=== PATIENT | male | born 1960 | race Caucasian/White ===

== ENCOUNTER 2017-11-13 11:21 | Inpatient (IN) | payer OTHER ==
[~2017-11-13] VITALS: Ht 180.3 cm; Wt 81.6 kg
--- NOTE | 2017-11-13 11:52 | ED GI/GU/ABDOMINAL COMPLAINT ---
History of Present Illness General Chief Complaint: Abdominal Pain/Flank Pain Stated Complaint: ABD PAIN Source: patient, family Exam Limitations: no limitations Vital Signs & Intake/Output Vital Signs & Intake/Output Vital Signs Date Time Temp Pulse Resp B/P B/P Pulse O2 O2 Flow FiO2 Mean Ox Delivery Rate 11/13 1430 99.8 11/13 1430 99.8 88 20 131/80 96 Room Air 11/13 1355 96 20 133/87 94 11/13 1346 101.0 11/13 1320 101.1 98 20 145/100 98 Room Air 11/13 1126 99.6 113 18 130/93 96 Room Air Allergies Coded Allergies: NO KNOWN ALLERGIES (11/20/13) Reconcile Medications No Known Home Medications Triage Note: PATIENT TO ER FROM [facility] C/C LOWER ABD PAIN SHARP WITH ANOREXIA X 1 WEEK, CONSTANT. MILD NAUSEA. DENIES URINARY S/S Triage Nurses Notes Reviewed? yes Onset: Gradual Duration: week(s): Timing: recent history Quality/Severity: moderate, sharpness Severity Numbers: 8 Location: left lower quadrant, right lower quadrant HPI: 57yo male presents to ED complaining of bilateral lower abdominal pain x 1 week. Pain described as 8/10, stabbing pain, fluctuating in intensity. Pain has been constant, patient tried Advil which helped slightly. PAtient had constipation x 5 days during which time he passed no flatus then diarrhea for the past few days. Patient also reports cough productive of white phlem. Patient has been drinking fluids daily. Current daily cigarette and marijuana smoker and drinks 4 -6 beers per day however no alcohol with current abdominal pain. Patient reports tacticle fevers and chills about 1 week ago. 1 episode of nonbilious, nonbloody vomiting 1 week ago. Hx of prior inguinal hernia. No hx of similar abdominal pain. Past History Travel History Traveled to [place] past 21 day No Medical History Any Pertinent Medical History? see below for history Gastrointestinal: inguinal hernia Surgical History Surgical History: hernia repair-inguinal Psychosocial History What is your primary language Palestinian Tobacco Use: Current Daily Use Daily Tobacco Use Amount/Type: => 5 Cigarettes daily Family History Hx Contributory? No Review of Systems Review of Systems Constitutional: Reports: see HPI. EENTM: Reports: no symptoms. Respiratory: Reports: no symptoms. Cardiovascular: Reports: no symptoms. GI: Reports: see HPI. Genitourinary: Reports: no symptoms. Musculoskeletal: Reports: no symptoms. Skin: Reports: no symptoms. Neurological/Psychological: Reports: no symptoms. Hematologic/Endocrine: Reports: no symptoms. Immunologic/Allergic: Reports: no symptoms. All Other Systems: Reviewed and Negative Physical Exam Physical Exam General Appearance: well developed/nourished, no apparent distress, alert, awake Head: atraumatic, normal appearance Eyes: Bilateral: normal appearance. Ears, Nose, Throat, Mouth: hearing grossly normal Neck: normal inspection, supple, full range of motion Respiratory: normal breath sounds, no respiratory distress, lungs clear Cardiovascular: regular rate/rhythm Gastrointestinal: mild distention, tenderness through out all quadrants with gaurding Back: normal inspection, normal range of motion Extremities: normal range of motion Neurologic/Psych: awake, alert, oriented x 3 Skin: intact, normal color, warm/dry Core Measures ACS in differential dx? No Sepsis Present: No Sepsis Focused Exam Completed? No Progress Differential Diagnosis: appendicitis, bowel obstruction, colon cancer, cholecystitis, diverticulitis, gastritis, hepatitis, hernia, hemorrhoids, inflamm bowel dis, pancreatitis, peptic ulcer, PUD/GERD, perforated viscous, SBO , ureterolithiasis Plan of Care: Orders Procedure Date/time Status CT PERCUTANEOUS ABSCESS DRAIN 11/13 1513 Active Add-on Test (ER Only) 11/13 1456 Active CULTURE,BODY FLUID 11/13 1442 Active BLOOD CULTURE 11/13 1358 Active Add-on Test (ER Only) 11/13 1221 Active TROPONIN LEVEL 11/13 1139 Complete PROTHROMBIN TIME 11/13 1139 Complete LIPASE 11/13 1139 Complete ETHANOL 11/13 1139 Complete C-REACTIVE PROTEIN 11/13 1139 Complete AMYLASE 11/13 1139 Complete EKG 11/13 1129 Active LACTIC ACID 11/13 1127 Complete HIGH SENSITIVITY CRP 11/13 1127 Complete COMPREHENSIVE METABOLIC PANEL 11/13 1127 Complete CBC WITHOUT DIFFERENTIAL 11/13 1127 Complete Current Medications Sig/Julianna Start time Last Medication Dose Stop Time Status Admin Ampicillin Sodium/ 3,000 MG ONCE ONE 11/13 1500 AC Sulbactam Sodium 11/13 1529 (Unasyn) Sodium Chloride 100 ML (Normal Saline 0.9%) Laboratory Tests 11/13/17 1456: PT Cancelled, INR Cancelled 11/13/17 1427: Lactic Acid Cancelled 11/13/17 1139: Anion Gap 18 H, Estimated GFR > 60, BUN/Creatinine Ratio 18.9, Glucose 123 H, Lactic Acid 1.8, Calcium 9.0, Total Bilirubin 2.7 H, AST 30, ALT 53, Alkaline Phosphatase 166 H, Troponin I < 0.01, C-Reactive Prot, Quant > 9.0 H, C-React Prot High Sens > 15.0 H, Total Protein 6.5, Albumin 3.6, Globulin 2.9, Albumin/ Globulin Ratio 1.2, Amylase 34, Lipase 34, PT 13.2 H, INR 1.26 H, CBC w Diff MAN DIFF ORDERED, RBC 4.75, MCV 97.0 H, MCH 32.5 H, RDW 13.6, MPV 7.1 L, Gran % 86.2 H, Lymphocytes % 5.4 L, Monocytes % 7.6, Eosinophils % 0.5, Basophils % 0.3, Absolute Granulocytes 17.0 H, Segmented Neutrophils 63, Band Neutrophils 18 H, Absolute Lymphocytes 1.1 L, Lymphocytes 11 L, Monocytes 7, Absolute Monocytes 1.5 H, Eosinophils 1, Absolute Eosinophils 0.1, Absolute Basophils 0.1, Platelet Estimate INCREASED, Normocytic RBCs VERIFIED, Normochromic RBCs VERIFIED, PUBS MCHC 33.5, Serum Alcohol < 10.0 Microbiology 11/13 1442 BODY FLUID: Body Fluid Culture - ORD 11/13 1442 BODY FLUID: Gram Stain - ORD 11/13 1430 BLOOD: Blood Culture - RECD 11/13 1430 BLOOD: Blood Culture - RECD CT scan shows diverticulitis with perisigmoid abscess. Discussed these findings with Dr. Snow. Surgical PA present to see and evaluate patient. Patient started on IV Unasyn. Patient will have CT-guided IR procedure for abscess and be admitted under surgical service. Patient medicated with IV acetaminophen and IV fluids regarding his fever. Diagnostic Imaging: Viewed by Me: CT Scan. Discussed w/RAD: CT Scan. Radiology Impression: PATIENT: BHASKAR DONIS PRESENT AGE: 57 PATIENT ACCOUNT NO: [id number] : 62 LOCATION: [facility] ORDERING PHYSICIAN: Denise TRINIDAD SERVICE DATE: 11/13/174 EXAM TYPE: CAT - CT ABD & PELVIS W IV CONTRAST EXAMINATION: CT ABDOMEN AND PELVIS WITH CONTRAST CLINICAL INFORMATION: Generalized abdominal pain and leukocytosis. COMPARISON: None TECHNIQUE: Multidetector volumetric imaging was performed of the abdomen and pelvis following IV administration of 95 mL of Optiray 320 intravenous contrast. Sagittal and coronal reformatted images were obtained on the technologist's workstation. DLP: 412 mGy-cm FINDINGS: LUNG BASES: Trace right pleural effusion and mild right basilar atelectasis. LIVER, GALLBLADDER, AND BILIARY TREE: Liver has normal size, contour and attenuation. No evidence of hepatic mass. Gallbladder is moderately distended and without radiopaque calculi or wall edema. No intrahepatic or extrahepatic bile duct dilatation. PANCREAS: Unremarkable. SPLEEN: Unremarkable. ADRENAL GLANDS: Unremarkable. KIDNEYS AND URETERS: Kidneys have normal size, cortical thickness and attenuation. No nephrolithiasis or hydronephrosis. The two subcentimeter sized foci of hypoattenuation left kidney are likely cysts but are too small to definitively characterize. The ureters are unremarkable. BLADDER: Unremarkable. GASTROINTESTINAL TRACT: Stomach is normal. The terminal ileum is normal. The appendix is normal. There are multiple diverticula of the descending and sigmoid colon, and there is fat stranding around the inflamed sigmoid colon. A 6.5 x 7.5 x 7 cm collection within the sigmoid mesentery containing gas and fluid is compatible with a perisigmoid abscess, and this exerts mass effect upon adjacent small bowel which has an edematous wall. Proximal to this level, small bowel is dilated up to 3.6 cm AP diameter. A small amount of rim-enhancing fluid extends posteriorly and distally into the pelvic cul-de-sac. No pneumoperitoneum. ABDOMINAL WALL: Unremarkable. LYMPH NODES: Mild lymphadenopathy within the mesentery; largest mesenteric lymph nodes measure up to 0.9 cm short axis dimension. No pathologic sized retroperitoneal, iliac or inguinal lymph nodes. VASCULAR: Mild atherosclerosis of the abdominal aorta without aneurysm. PELVIC VISCERA: Prostate gland measures approximately 4.8 x 3.1 x 4.1 cm. OSSEOUS STRUCTURES: No suspicious bone lesions. Mild degenerative disc space narrowing and traction osteophyte formation of the visualized lower thoracic spine. There are Schmorl's nodes at the L2 and L3 superior endplates. IMPRESSION: Sigmoid colon diverticulitis with 6.5 x 7.5 x 7 cm perisigmoid abscess. The abscess exerts mass effect upon the adjacent small bowel, and there is reactive inflammatory wall thickening of the small bowel. Small bowel is dilated up to 3.6 cm AP diameter -- either from obstruction caused by the mass effect from the abscess or from an ileus. No pneumoperitoneum. There is mild lymphadenopathy within the mesentery. DICTATED BY: Ousmane Chun MD DATE/TIME DICTATED:1322 [place] DATE/TIME TRANSCRIBED:11/13/171322 CONFIDENTIAL, DO NOT COPY WITHOUT APPROPRIATE AUTHORIZATION. <Electronically signed in Other Vendor System> SIGNED BY: Ousmane Chun MD 11/13/17 1340 Initial ED EKG: sinus tachycardia @106bpm, nonspecific ST changes Prior EKG: changed (11/17/13) Departure Departure Disposition: STILL A PATIENT Condition: Stable Clinical Impression Primary Impression: Diverticulitis Qualifiers: Diverticulitis site: large intestine Diverticulitis bleeding: without bleeding Diverticulitis complication: with abscess Qualified Code: K57.20 - Diverticulitis of large intestine with perforation and abscess without bleeding Referrals: Bee EATON,Ryan Collins (PCP/Family) Departure Forms: Customer Survey General Discharge Information Prescriptions: Current Visit Scripts No Known Home Medications Admission Note Spoke With: Edy EATON,Frandy Mackay Documentation of Exam: Documentation of any treatments & extenuating circumstances including Concerns Regarding Discharge (functional status, medication knowledge or non-compliance, living conditions, etc.) that warrant an admission rather than observation: [ Diverticulitis with perisigmoid abscess requiring IV antibiotics, IR CT guided procedure, surgical consultation, premature discharge would be medically unsafe. ]
[2017-11-13 11:59] LABS: ABSOLUTE BASOPHIL COUNT 0.1 /CUMM (0.0-0.2); ABSOLUTE EOSINOPHIL COUNT 0.1 /CUMM (0.0-0.7); ABSOLUTE LYMPH COUNT 1.1 /CUMM (1.2-3.4); ABSOLUTE MONOCYTE COUNT 1.5 /CUMM (0.10-0.60); BASOPHIL % 0.3 % (0.0-2.0); EOSINOPHIL % 0.5 % (0-5); GRANULOCYTE % 86.2 % (42.2-75.2); HEMATOCRIT 46.1 % (42-52); MEAN CORPUSCULAR HGB 32.5 PG (27.0-31.0); MEAN CORPUSCULAR HGB CONC 33.5 G/DL (33.0-37.0); MEAN PLATELET VOLUME 7.1 FL (7.4-10.4); PLATELET COUNT 571 /CUMM (130-400); RBC DISTRIBUTION WIDTH 13.6 % (11.5-14.5); RED BLOOD CELL CT 4.75 /CUMM (4.70-6.10); WHITE BLOOD CELL COUNT 19.7 /CUMM (4.8-10.8)
--- NOTE | 2017-11-13 13:40 | CT SCAN REPORT ---
EXAMINATION: CT ABDOMEN AND PELVIS WITH CONTRAST CLINICAL INFORMATION: Generalized abdominal pain and leukocytosis. COMPARISON: None TECHNIQUE: Multidetector volumetric imaging was performed of the abdomen and pelvis following IV administration of 95 mL of Optiray 320 intravenous contrast. Sagittal and coronal reformatted images were obtained on the technologist's workstation. DLP: 412 mGy-cm FINDINGS: LUNG BASES: Trace right pleural effusion and mild right basilar atelectasis. LIVER, GALLBLADDER, AND BILIARY TREE: Liver has normal size, contour and attenuation. No evidence of hepatic mass. Gallbladder is moderately distended and without radiopaque calculi or wall edema. No intrahepatic or extrahepatic bile duct dilatation. PANCREAS: Unremarkable. SPLEEN: Unremarkable. ADRENAL GLANDS: Unremarkable. KIDNEYS AND URETERS: Kidneys have normal size, cortical thickness and attenuation. No nephrolithiasis or hydronephrosis. The two subcentimeter sized foci of hypoattenuation left kidney are likely cysts but are too small to definitively characterize. The ureters are unremarkable. BLADDER: Unremarkable. GASTROINTESTINAL TRACT: Stomach is normal. The terminal ileum is normal. The appendix is normal. There are multiple diverticula of the descending and sigmoid colon, and there is fat stranding around the inflamed sigmoid colon. A 6.5 x 7.5 x 7 cm collection within the sigmoid mesentery containing gas and fluid is compatible with a perisigmoid abscess, and this exerts mass effect upon adjacent small bowel which has an edematous wall. Proximal to this level, small bowel is dilated up to 3.6 cm AP diameter. A small amount of rim-enhancing fluid extends posteriorly and distally into the pelvic cul-de-sac. No pneumoperitoneum. ABDOMINAL WALL: Unremarkable. LYMPH NODES: Mild lymphadenopathy within the mesentery; largest mesenteric lymph nodes measure up to 0.9 cm short axis dimension. No pathologic sized retroperitoneal, iliac or inguinal lymph nodes. VASCULAR: Mild atherosclerosis of the abdominal aorta without aneurysm. PELVIC VISCERA: Prostate gland measures approximately 4.8 x 3.1 x 4.1 cm. OSSEOUS STRUCTURES: No suspicious bone lesions. Mild degenerative disc space narrowing and traction osteophyte formation of the visualized lower thoracic spine. There are Schmorl's nodes at the L2 and L3 superior endplates. IMPRESSION: Sigmoid colon diverticulitis with 6.5 x 7.5 x 7 cm perisigmoid abscess. The abscess exerts mass effect upon the adjacent small bowel, and there is reactive inflammatory wall thickening of the small bowel. Small bowel is dilated up to 3.6 cm AP diameter -- either from obstruction caused by the mass effect from the abscess or from an ileus. No pneumoperitoneum. There is mild lymphadenopathy within the mesentery.
[2017-11-13 15:08] LABS: PT 13.2 SEC (9.4-12.5)
--- NOTE | 2017-11-13 15:55 | History & Physical ---
See Addendum Fabien Crocker 11/13/17 1529: General Information and HPI History of Present Illness: This is a previously healthy 57 year-old male who presents to the emergency room complaining of a week long history of progressively worsening abdominal pain with associated subjective fevers, chills and decreased appetite. Patient describes the pain as sharp and constant in a band like distribution in his lower abdomen. He reports feeling dehydrated due to a lack of appetite from his pain. He states he has not had anything solid to eat in a week. He last drank coffee this morning. He reports change in bowel function, he states 5 days ago he was constipated and then has had diarrhea over the past two days. He denies nausea or vomiting, chest pain, difficulty breathing, shortness or breath or urinary changes. He denies having a colonoscopy/endoscopy. He reports drinking 4 -6 per day, and states his last beer was last sunday. He reports his uncle has a history of diverticultitis. Allergies/Medications Allergies: Coded Allergies: NO KNOWN ALLERGIES (11/20/13) Home Med list No Known Home Medications Past History Travel History Traveled to [place] past 21 day No Medical History Gastrointestinal: inguinal hernia Surgical History Surgical History: hernia repair-inguinal (Lap left in 10/2013) Past Family/Social History Family History Relations & Conditions if any FATHER, ; Cause: Multiple myeloma. Psychosocial History Smoking Status: Current Everyday Smoker (15 cigs/day) ETOH Use: 4-6 beers/day Illicit Drug Use: marijuana (FREQENTLY) Employment History Profession/Employer [employer] Review of Systems Review of Systems Constitutional: Denies: see HPI. EENTM: Denies: no symptoms. Cardiovascular: Denies: no symptoms. Respiratory: Denies: no symptoms. GI: Denies: see HPI. Genitourinary: Denies: no symptoms. Musculoskeletal: Denies: no symptoms. Skin: Denies: no symptoms. Neurological/Psychological: Denies: no symptoms. All Other Systems: Reviewed and Negative Colonoscopy Testing Status: Test never done Exam & Diagnostic Data Last 24 Hrs of Vital Signs/I&O Vital Signs Date Time Temp Pulse Resp B/P B/P Pulse O2 O2 Flow FiO2 Mean Ox Delivery Rate 11/13 1430 99.8 11/13 1430 99.8 88 20 131/80 96 Room Air 01/16 1355 96 20 133/87 94 01/16 1346 101.0 11/13 1320 101.1 98 20 145/100 98 Room Air 11/13 1126 99.6 113 18 130/93 96 Room Air Intake & Output 11/13 1600 11/13 0800 11/13 0000 Intake Total 1000 Output Total Balance 1000 Intake, IV 1000 Patient 180 lb Weight Weight Reported by Patient Measurement Method Physical Exam General Appearance Alert, Oriented X3, No Acute Distress Skin Temp/Moisture Exam: Warm/Dry HEENT Dry mucus membrane Neck Supple, No JVD, No LAD Cardiovascular Regular Rate, Normal S1, Normal S2 Lungs Clear to Auscultation, Normal Air Movement Abdomen Softly distended with well-healed laparoscopic incisions, hypoactive bowel sounds, tympanic to percussion, moderately tender to deep palpation in right-mid lower quadrant, midly tender in left lower quadrant with voluntary guarding, no rebound tenderness Extremities No Edema, No Tenderness/Swelling Last 24 Hrs of Labs/Juancarlos: Laboratory Tests 11/13/17 1456: PT Cancelled, INR Cancelled 11/13/17 1427: Lactic Acid Cancelled 11/13/17 1139: Anion Gap 18 H, Estimated GFR > 60, BUN/Creatinine Ratio 18.9, Glucose 123 H, Lactic Acid 1.8, Calcium 9.0, Total Bilirubin 2.7 H, AST 30, ALT 53, Alkaline Phosphatase 166 H, Troponin I < 0.01, C-Reactive Prot, Quant > 9.0 H, C-React Prot High Sens > 15.0 H, Total Protein 6.5, Albumin 3.6, Globulin 2.9, Albumin/ Globulin Ratio 1.2, Amylase 34, Lipase 34, PT 13.2 H, INR 1.26 H, CBC w Diff MAN DIFF ORDERED, RBC 4.75, MCV 97.0 H, MCH 32.5 H, RDW 13.6, MPV 7.1 L, Gran % 86.2 H, Lymphocytes % 5.4 L, Monocytes % 7.6, Eosinophils % 0.5, Basophils % 0.3, Absolute Granulocytes 17.0 H, Segmented Neutrophils 63, Band Neutrophils 18 H, Absolute Lymphocytes 1.1 L, Lymphocytes 11 L, Monocytes 7, Absolute Monocytes 1.5 H, Eosinophils 1, Absolute Eosinophils 0.1, Absolute Basophils 0.1, Platelet Estimate INCREASED, Normocytic RBCs VERIFIED, Normochromic RBCs VERIFIED, PUBS MCHC 33.5, Serum Alcohol < 10.0 Microbiology 11/13 1532 BODY FLUID: Body Fluid Culture - ORD 11/13 1532 BODY FLUID: Gram Stain - ORD 11/13 1442 BODY FLUID: Body Fluid Culture - ORD 11/13 1442 BODY FLUID: Gram Stain - ORD 11/13 1430 BLOOD: Blood Culture - RECD 11/13 1430 BLOOD: Blood Culture - RECD Diagnostic Data Other Results SERVICE DATE: 11/13/17 EXAM TYPE: CAT - CT ABD & PELVIS W IV CONTRAST EXAMINATION: CT ABDOMEN AND PELVIS WITH CONTRAST CLINICAL INFORMATION: Generalized abdominal pain and leukocytosis. COMPARISON: None TECHNIQUE: Multidetector volumetric imaging was performed of the abdomen and pelvis following IV administration of 95 mL of Optiray 320 intravenous contrast. Sagittal and coronal reformatted images were obtained on the technologist's workstation. DLP: 412 mGy-cm FINDINGS: LUNG BASES: Trace right pleural effusion and mild right basilar atelectasis. LIVER, GALLBLADDER, AND BILIARY TREE: Liver has normal size, contour and attenuation. No evidence of hepatic mass. Gallbladder is moderately distended and without radiopaque calculi or wall edema. No intrahepatic or extrahepatic bile duct dilatation. PANCREAS: Unremarkable. SPLEEN: Unremarkable. ADRENAL GLANDS: Unremarkable. KIDNEYS AND URETERS: Kidneys have normal size, cortical thickness and attenuation. No nephrolithiasis or hydronephrosis. The two subcentimeter sized foci of hypoattenuation left kidney are likely cysts but are too small to definitively characterize. The ureters are unremarkable. BLADDER: Unremarkable. GASTROINTESTINAL TRACT: Stomach is normal. The terminal ileum is normal. The appendix is normal. There are multiple diverticula of the descending and sigmoid colon, and there is fat stranding around the inflamed sigmoid colon. A 6.5 x 7.5 x 7 cm collection within the sigmoid mesentery containing gas and fluid is compatible with a perisigmoid abscess, and this exerts mass effect upon adjacent small bowel which has an edematous wall. Proximal to this level, small bowel is dilated up to 3.6 cm AP diameter. A small amount of rim-enhancing fluid extends posteriorly and distally into the pelvic cul-de-sac. No pneumoperitoneum. ABDOMINAL WALL: Unremarkable. LYMPH NODES: Mild lymphadenopathy within the mesentery; largest mesenteric lymph nodes measure up to 0.9 cm short axis dimension. No pathologic sized retroperitoneal, iliac or inguinal lymph nodes. VASCULAR: Mild atherosclerosis of the abdominal aorta without aneurysm. PELVIC VISCERA: Prostate gland measures approximately 4.8 x 3.1 x 4.1 cm. OSSEOUS STRUCTURES: No suspicious bone lesions. Mild degenerative disc space narrowing and traction osteophyte formation of the visualized lower thoracic spine. There are Schmorl's nodes at the L2 and L3 superior endplates. IMPRESSION: Sigmoid colon diverticulitis with 6.5 x 7.5 x 7 cm perisigmoid abscess. The abscess exerts mass effect upon the adjacent small bowel, and there is reactive inflammatory wall thickening of the small bowel. Small bowel is dilated up to 3.6 cm AP diameter -- either from obstruction caused by the mass effect from the abscess or from an ileus. No pneumoperitoneum. There is mild lymphadenopathy within the mesentery. Assessment/Plan Assessment: This is a previously healthy 57 year-old male who presents with his first episode of sigmoid diverticulitis with a 6.5 x 7.5 x 7 cm perisigmoid abscess Admit to gen/surg floor Keep NPO on IVF with supplemental K Proceed to IR for CT-guided abscess drainage Start Unasyn 3 grams Q8 until cultures return IV Morphine and Tylenol for pain control GI and DVT on board D/w Dr. Snow As Ranked By This Provider Problem List: 1. Sigmoid diverticulitis 2. Abscess of sigmoid colon due to diverticulitis Core Measures/Misc (07/15) Acute Coronary Syndrome ACS Diagnosis: No Congestive Heart Failure Congestive Heart Failure Diagnosis No Cerebrovascular Accident CVA/TIA Diagnosis: No VTE (View Protocol) VTE Risk Factors Age>40 No Mechanical VTE Prophylaxis d/t N/A MechProphylax Ordered No VTE Pharm Prophylaxis d/t NA PharmProphylax ordered Sepsis (View protocol) Sepsis Present: Yes Frandy Snow MD 11/14/17 0845: Attending MD Review Statement Attending Statement Attending MD Statement: examined this patient, discuss w/resident/PA/MACHINE DESIGN ENGINEER, reviewed images Attending Assessment/Plan: as above. patient presents with first episode diverticulitis with abscess of sigmoid colon, contained by small bowel loop. Case discussed with IR. The abscess is amenable to percutaneous drainage, which has been conducted. Marked purulence drained and patient feels better. cultures pending. continue iv unasyn pending culture results.
--- NOTE | 2017-11-13 16:44 | CT SCAN REPORT ---
PROCEDURE: CAT scan guided abscess drainage INDICATION: Perisigmoid abscess ACCESS: 12 [place] locking pigtail catheter SPECIMEN: Culture Specimen were appropriately labeled and sent to the laboratory for evaluation with request to inform the referring physician of results. MEDICATIONS/ SEDATION: -Moderate sedation was provided under the direct supervision of a interventional radiology nurse. A total dosage of 2 mg Versed and 100 mcg Fentanyl was administered in divided doses. Total sedation time of 20 minutes. -10ml 1% lidocaine for local anesthesia COMPARISON: Same day CT abdomen pelvis DLP: 363 mGy-cm CONSENT: Informed consent was obtained from the patient prior to the procedure. During this process, the procedure and potential alternatives was explained along with the intended outcome and benefits. The risks of the procedure, including the possibility of an unsuccessful procedure, as well as the risk of not doing the procedure were discussed. The patient was given the opportunity to ask any questions regarding the procedure and appeared competent to make medical decisions. A signed consent form which documents this discussion was placed in the medical record. TECHNIQUE: The patient was brought to the CAT scan room and placed in the supine position. A final timeout was completed. CAT scan images of abdomen/pelvis were obtained to localize the perisigmoid abscess. An area of the patient's lower abdomen/upper pelvis was prepped and draped in standard sterile fashion. 10ml of 1% lidocaine was used to obtain local anesthesia of the skin and deeper tissues. An 5 [place] Yueh needle was passed through the skin and placed into the abscess using CT fluoroscopic guidance. A guidewire was passed through the needle and coiled within the abscess. This was confirmed with CT fluoroscopic imaging. The access needle was removed. A series of tissue dilators numbering 8, 10 and 12 were used to dilate the tract. A 12 [place] locking pigtail catheter was passed over the wire and placed within the abscess. One suture was used to secure the catheter to the skin. A StatLock device was also utilized. A sterile dressing was applied. The catheter was attached to a gravity collection bag. SAMPLE: Approximately 30 mL of bloody, nonclotting pelvis was aspirated in the room. A sample was sent for culture. COMPLICATIONS: The patient tolerated the procedure well without complications. He was transferred back to the emergency room in good condition. CONCLUSION: CAT scan guided abscess drainage as described. PLAN: 1. Continued drainage of abscess into gravity collection bag. 2. Flushing of drainage catheter with 10 mL sterile saline twice daily. 3. Drain will be managed by the surgical team.
--- NOTE | 2017-11-13 19:00 | Admission Core Measures ---
Acute Coronary Syndrome (CM) ACS Core Measures Acute Coronary Syndrome Diagnosis No Congestive Heart Failure (NEW) CHF Core Measures Congestive Heart Failure Diagnosis No Cerebrovascular Accident (NEW) CVA Core Measures CVA/TIA Diagnosis No Venous Thromboembolism VTE Core Ciara (View Protocol) VTE Risk Factors Age>40 No Mechanical VTE Prophylaxis d/t N/A MechProphylax Ordered No VTE Pharm Prophylaxis d/t NA PharmProphylax ordered Problem List As ranked by this Provider includes Assessment & Plan 1. Abscess of sigmoid colon due to diverticulitis HOME MEDS Home Med List No Known Home Medications
[2017-11-13 19:29] VITALS: BP 120/80
[2017-11-13 21:52] VITALS: BP 130/86
[2017-11-14 02:16] VITALS: BP 130/78
[2017-11-14 06:05] VITALS: BP 122/78
--- NOTE | 2017-11-14 07:41 | PN- General Surgery ---
See Addendum Subjective Subjective: Reports pain improves with morphine. Percutaneous drainage done by IR yesterday, with remaining drain and collection bag. Currently npo. Out of bed to bathroom without difficulty. Denies chills/sweats. No dysuria. Passing some flatus. No bm. Last fever yesterday afternoon around 1 pm. Objective Vital Signs and I&Os Vital Signs Date Time Temp Pulse Resp B/P B/P Pulse O2 O2 Flow FiO2 Mean Ox Delivery Rate 11/14 0605 98.2 66 20 122/78 93 Room Air 11/14 0216 98.5 68 20 130/78 93 Room Air 11/13 2152 98.3 89 19 130/86 95 Room Air 11/13 1946 Room Air 11/13 1929 98.7 85 19 120/80 97 Room Air 11/13 1905 99.5 80 18 130/78 95 Room Air Room Air 11/13 1620 99.4 87 19 142/81 95 Room Air 11/13 1430 99.8 11/13 1430 99.8 88 20 131/80 96 Room Air 11/13 1355 96 20 133/87 94 11/13 1346 101.0 11/13 1320 101.1 98 20 145/100 98 Room Air 11/13 1126 99.6 113 18 130/93 96 Room Air Intake & Output 11/14 0800 11/14 0000 11/13 1600 11/13 0800 11/13 0000 11/12 1600 Intake Total 8603 567 5049 Output Total 620 430 Balance 440 -120 1000 Intake, IV 7355 284 6743 Intake, Oral 60 60 Output, 20 430 Drainage Output, Other Output, Urine 600 Patient 180 lb 180 lb Weight Weight Reported by Patient Reported by Patient Measurement Method Physical Exam: General - alert & oriented x 3. comfortable. no acute distress. Lungs - clear bilaterally. no w/r/r. Cardiac - s1s2. reg. Abdomen - soft. tenderness mostly left lower quadrant, but also around perc drain site centrally. Extremities - warm bilaterally. no c/c/e. calves soft and nontender b/l. Current Medications: Current Medications Sig/Julianna Start time Last Medication Dose Route Stop Time Status Admin Acetaminophen 1,000 MG Q6P PRN 11/13 1530 AC 11/13 N/A 1 UNIT IV 2130 Acetaminophen 0 .STK-MED ONE 11/13 1351 DC IV Acetaminophen 1,000 MG ONCE ONE 11/13 1330 DC 11/13 N/A 1 UNIT IV 11/13 1344 1346 Ampicillin Sodium/ 3,000 MG Q6H 11/13 2200 AC 11/14 Sulbactam Sodium IV 0416 Sodium Chloride 100 ML Ampicillin Sodium/ 3,000 MG Q6 11/13 1800 DC Sulbactam Sodium IV Sodium Chloride 100 ML Ampicillin Sodium/ 0 .STK-MED ONE 11/13 1542 DC Sulbactam Sodium .ROUTE Ampicillin Sodium/ 3,000 MG ONCE ONE 11/13 1500 DC 11/13 Sulbactam Sodium IV 11/13 1529 1644 Sodium Chloride 100 ML Fentanyl Citrate 0 .STK-MED ONE 11/13 1522 DC .ROUTE Flumazenil 0 .STK-MED ONE 11/13 1521 DC IV Heparin Sodium 5,000 UNIT Q8 11/13 2200 AC (Porcine) SC Influenza Virus 0.5 ML ONCE ONE 11/13 2015 DC Vaccine IM 11/13 2015 Lorazepam 0 Q1P PRN 11/13 1745 AC IV Melatonin 5 MG AT BEDTIME 11/14 0015 AC 11/14 PO 0016 Midazolam HCl 0 .STK-MED ONE 11/13 1522 DC .ROUTE Morphine Sulfate 4 MG Q4-6 PRN PRN 11/13 1530 AC 11/14 IV 0417 Morphine Sulfate 6 MG Q4-6 PRN PRN 11/13 1530 AC IV Morphine Sulfate 2 MG Q4P PRN 11/13 1530 AC IV Morphine Sulfate 4 MG ONCE ONE 11/13 1245 DC 11/13 IV 11/13 1246 1240 Morphine Sulfate 0 .STK-MED ONE 11/13 1241 DC .ROUTE Naloxone HCl 0 .STK-MED ONE 11/13 1522 DC .ROUTE Ondansetron HCl 4 MG Q6P PRN 11/13 1530 AC IV Pantoprazole Sodium 40 MG DAILY 11/14 1000 AC IV Potassium Chloride 20 MEQ Q8H 11/13 1715 AC 11/14 Dextrose/Sodium 1,000 ML IV 0417 Chloride Potassium Chloride 20 MEQ .Q8H 11/13 1515 CAN Dextrose/Sodium 1,000 ML IV Chloride Sodium Chloride 1,000 ML BOLUS ONE 11/13 1245 DC 11/13 IV 11/13 1344 1240 Results Last 48 Hours of Labs: Laboratory Tests 11/14 11/13 11/13 0619 1456 1427 Chemistry Sodium Pending Potassium Pending Chloride Pending Carbon Dioxide Pending Anion Gap Pending BUN Pending Creatinine Pending BUN/Creatinine Ratio Pending Lactic Acid Cancelled Coagulation PT Cancelled INR Cancelled Hematology CBC w Diff Pending WBC Pending RBC Pending Hgb Pending Hct Pending MCV Pending MCH Pending RDW Pending Plt Count Pending MPV Pending PUBS MCHC Pending 11/13 1139 Chemistry Sodium (137 - 145 mmol/L) 139 Potassium (3.5 - 5.1 mmol/L) 3.3 L Chloride (98 - 107 mmol/L) 94 L Carbon Dioxide (22 - 30 mmol/L) 27 Anion Gap (5 - 16) 18 H BUN (9 - 20 mg/dL) 17 Creatinine (0.7 - 1.2 mg/dL) 0.9 Estimated GFR (>60 ml/min) > 60 BUN/Creatinine Ratio (7 - 25 %) 18.9 Glucose (65 - 99 mg/dL) 123 H Lactic Acid (0.7 - 2.1 mmol/L) 1.8 Calcium (8.4 - 10.2 mg/dL) 9.0 Total Bilirubin (0.2 - 1.3 mg/dL) 2.7 H AST (17 - 59 U/L) 30 ALT (21 - 72 U/L) 53 Alkaline Phosphatase (< 127 U/L) 166 H Troponin I (<0.11 ng/ml) < 0.01 C-Reactive Prot, Quant (<1.0 mg/dL) > 9.0 H C-React Prot High Sens (1.0 - 3.0 mg/L) > 15.0 H Total Protein (6.3 - 8.2 g/dL) 6.5 Albumin (3.5 - 5.0 g/dL) 3.6 Globulin (1.9 - 4.2 gm/dL) 2.9 Albumin/Globulin Ratio (1.1 - 2.2 %) 1.2 Amylase (30 - 110 U/L) 34 Lipase (23 - 300 U/L) 34 Coagulation PT (9.4 - 12.5 SEC) 13.2 H INR (0.90 - 1.17) 1.26 H Hematology CBC w Diff MAN DIFF ORDERED WBC (4.8 - 10.8 /CUMM) 19.7 H RBC (4.70 - 6.10 /CUMM) 4.75 Hgb (14.0 - 18.0 G/DL) 15.4 Hct (42 - 52 %) 46.1 MCV (80.0 - 94.0 FL) 97.0 H MCH (27.0 - 31.0 PG) 32.5 H RDW (11.5 - 14.5 %) 13.6 Plt Count (130 - 400 /CUMM) 571 H MPV (7.4 - 10.4 FL) 7.1 L Gran % (42.2 - 75.2 %) 86.2 H Lymphocytes % (20.5 - 51.1 %) 5.4 L Monocytes % (1.7 - 9.3 %) 7.6 Eosinophils % (0 - 5 %) 0.5 Basophils % (0.0 - 2.0 %) 0.3 Absolute Granulocytes (1.4 - 6.5 /CUMM) 17.0 H Segmented Neutrophils (42.2 - 75.2 %) 63 Band Neutrophils (0.0 - 5.0 %) 18 H Absolute Lymphocytes (1.2 - 3.4 /CUMM) 1.1 L Lymphocytes (20.5 - 51.1 %) 11 L Monocytes (1.7 - 9.3 %) 7 Absolute Monocytes (0.10 - 0.60 /CUMM) 1.5 H Eosinophils (0 - 5.0 %) 1 Absolute Eosinophils (0.0 - 0.7 /CUMM) 0.1 Absolute Basophils (0.0 - 0.2 /CUMM) 0.1 Platelet Estimate (ADEQUATE) INCREASED Normocytic RBCs VERIFIED Normochromic RBCs VERIFIED PUBS MCHC (33.0 - 37.0 G/DL) 33.5 Toxicology Serum Alcohol (<10 MG/DL) < 10.0 Assessment/Plan Assessment/Plan This 57 year old male presented yesterday with acute sigmoid diverticulitis with perisigmoid abscess s/p percutaneous drainage by IR yesterday currently npo / ivf pain control as ordered. may consider adding toradol f/u labs and perc drain cxs flush drainage catheter with 10 mL sterile saline twice daily as per IR recommendations continue IV unasyn for abscess / diverticulitis hep sc - dvt ppx oob/ambulation serial exams will d/w Core Measures Venous Thromboembolism VTE Risk Factors Age>40 No Mechanical VTE Prophylaxis d/t N/A MechProphylax Ordered No VTE Pharm Prophylaxis d/t NA PharmProphylax ordered
[2017-11-14 08:18] LABS: ABSOLUTE BASOPHIL COUNT 0 /CUMM (0.0-0.2); ABSOLUTE EOSINOPHIL COUNT 0.3 /CUMM (0.0-0.7); ABSOLUTE GRANULOCYTE CT 9.5 /CUMM (1.4-6.5); ABSOLUTE LYMPH COUNT 1.6 /CUMM (1.2-3.4); ABSOLUTE MONOCYTE COUNT 1.3 /CUMM (0.10-0.60); BASOPHIL % 0.1 % (0.0-2.0); GRANULOCYTE % 75.1 % (42.2-75.2); MEAN CORPUSCULAR HGB 33.1 PG (27.0-31.0); MEAN CORPUSCULAR VOLUME 97.3 FL (80.0-94.0); MEAN PLATELET VOLUME 7.3 FL (7.4-10.4); PLATELET COUNT 494 /CUMM (130-400); RED BLOOD CELL CT 3.81 /CUMM (4.70-6.10); WHITE BLOOD CELL COUNT 12.6 /CUMM (4.8-10.8)
[2017-11-14 10:26] VITALS: BP 128/78
[2017-11-14 14:02] VITALS: BP 124/76
[2017-11-14 18:00] VITALS: BP 130/80
[2017-11-14 21:58] VITALS: BP 130/80
[2017-11-15] VITALS (7 sets, daily range): BP systolic 128–142; BP diastolic 78–100
--- NOTE | 2017-11-15 07:43 | PN- General Surgery ---
See Addendum Subjective Subjective: Patient reports improvement in his pain since admission. He states he required Morphine yesterday bc Tylenol wasnt aqeduately treating his pain. He denies any n/v/f/c. He reports passing flatus, denies BMs. States he is only ambulating to the bathroom and is requesting to have something to eat. Objective Vital Signs and I&Os Vital Signs Date Time Temp Pulse Resp B/P B/P Pulse O2 O2 Flow FiO2 Mean Ox Delivery Rate 11/15 0223 98.4 71 20 132/78 92 Room Air 11/15 0000 98.4 71 20 132/78 11/14 2158 99.4 84 20 130/80 91 Room Air 11/14 1800 99.5 68 18 130/80 94 Room Air 11/14 1402 98.8 67 18 124/76 95 Room Air 11/14 1026 97.9 80 20 128/78 97 Room Air Intake & Output 11/15 0800 11/15 0000 11/14 1600 11/14 0800 11/14 0000 11/13 1600 Intake Total 5376 427 2973 310 1000 Output Total 35 10 220 620 430 Balance 1065 -10 680 440 -120 1000 Intake, IV 1299 910 6839 250 1000 Intake, Oral 0 60 60 Number 0 Bowel Movements Output, 35 10 20 20 430 Drainage Output, Other Output, Urine 200 600 Patient 180 lb 180 lb 180 lb Weight Weight Reported by Patient Reported by Patient Measurement Method Physical Exam: Gen - resting comfortably awak and alert in NAD Lungs - CTAB Cardiac - S1S2 noted Abdomen - soft, mildly distended with perc right lower quadrant drain in place with malodorous purulent drainage, moderately tender to palpation in lower quadrants, no rebound or guarding noted Extremities - no edema or calf tenderness B/L Current Medications: Current Medications Sig/Julianna Start time Last Medication Dose Route Stop Time Status Admin Acetaminophen 1,000 MG Q6P PRN 11/13 1530 AC 11/15 N/A 1 UNIT IV 0420 Ampicillin Sodium/ 3,000 MG Q6H 11/13 2200 AC 11/15 Sulbactam Sodium IV 0406 Sodium Chloride 100 ML Heparin Sodium 5,000 UNIT Q8 11/13 2200 AC (Porcine) SC Ketorolac 30 MG Q6P PRN 11/14 0800 AC Tromethamine IV Lorazepam 0 Q1P PRN 11/13 1745 AC IV Melatonin 5 MG AT BEDTIME 11/14 0015 11/14 PO 2149 Morphine Sulfate 4 MG Q4-6 PRN PRN 11/13 1530 AC 11/14 IV 2149 Morphine Sulfate 6 MG Q4-6 PRN PRN 11/13 1530 AC IV Morphine Sulfate 2 MG Q4P PRN 11/13 1530 AC IV Ondansetron HCl 4 MG Q6P PRN 11/13 1530 AC IV Pantoprazole Sodium 40 MG DAILY 11/14 1000 AC 11/14 IV 0958 Patient Medication 1 ED ONE ONE 11/14 1200 DC 11/14 Teaching ED 11/14 1201 1213 Potassium Chloride 10 MEQ Q1H 11/14 1015 DC 11/14 IV 11/14 1116 1826 Potassium Chloride 20 MEQ Q8H 11/13 1715 11/15 Dextrose/Sodium 1,000 ML IV 0049 Chloride Results Last 48 Hours of Labs: Laboratory Tests 11/14 11/13 11/13 0619 1456 1427 Chemistry Sodium (137 - 145 mmol/L) 141 Potassium (3.5 - 5.1 mmol/L) 3.4 L Chloride (98 - 107 mmol/L) 103 Carbon Dioxide (22 - 30 mmol/L) 25 Anion Gap (5 - 16) 13 BUN (9 - 20 mg/dL) 12 Creatinine (0.7 - 1.2 mg/dL) 0.7 Estimated GFR (>60 ml/min) > 60 BUN/Creatinine Ratio (7 - 25 %) 17.1 Lactic Acid Cancelled Coagulation PT Cancelled INR Cancelled Hematology CBC w Diff NO MAN DIFF REQ WBC (4.8 - 10.8 /CUMM) 12.6 H RBC (4.70 - 6.10 /CUMM) 3.81 L Hgb (14.0 - 18.0 G/DL) 12.6 L Hct (42 - 52 %) 37.0 L MCV (80.0 - 94.0 FL) 97.3 H MCH (27.0 - 31.0 PG) 33.1 H RDW (11.5 - 14.5 %) 14.0 Plt Count (130 - 400 /CUMM) 494 H MPV (7.4 - 10.4 FL) 7.3 L Gran % (42.2 - 75.2 %) 75.1 Lymphocytes % (20.5 - 51.1 %) 12.7 L Monocytes % (1.7 - 9.3 %) 10.1 H Eosinophils % (0 - 5 %) 2.0 Basophils % (0.0 - 2.0 %) 0.1 Absolute Granulocytes (1.4 - 6.5 /CUMM) 9.5 H Absolute Lymphocytes (1.2 - 3.4 /CUMM) 1.6 Absolute Monocytes (0.10 - 0.60 /CUMM) 1.3 H Absolute Eosinophils (0.0 - 0.7 /CUMM) 0.3 Absolute Basophils (0.0 - 0.2 /CUMM) 0 PUBS MCHC (33.0 - 37.0 G/DL) 34.0 16 1139 Chemistry Sodium (137 - 145 mmol/L) 139 Potassium (3.5 - 5.1 mmol/L) 3.3 L Chloride (98 - 107 mmol/L) 94 L Carbon Dioxide (22 - 30 mmol/L) 27 Anion Gap (5 - 16) 18 H BUN (9 - 20 mg/dL) 17 Creatinine (0.7 - 1.2 mg/dL) 0.9 Estimated GFR (>60 ml/min) > 60 BUN/Creatinine Ratio (7 - 25 %) 18.9 Glucose (65 - 99 mg/dL) 123 H Lactic Acid (0.7 - 2.1 mmol/L) 1.8 Calcium (8.4 - 10.2 mg/dL) 9.0 Total Bilirubin (0.2 - 1.3 mg/dL) 2.7 H AST (17 - 59 U/L) 30 ALT (21 - 72 U/L) 53 Alkaline Phosphatase (< 127 U/L) 166 H Troponin I (<0.11 ng/ml) < 0.01 C-Reactive Prot, Quant (<1.0 mg/dL) > 9.0 H C-React Prot High Sens (1.0 - 3.0 mg/L) > 15.0 H Total Protein (6.3 - 8.2 g/dL) 6.5 Albumin (3.5 - 5.0 g/dL) 3.6 Globulin (1.9 - 4.2 gm/dL) 2.9 Albumin/Globulin Ratio (1.1 - 2.2 %) 1.2 Amylase (30 - 110 U/L) 34 Lipase (23 - 300 U/L) 34 Coagulation PT (9.4 - 12.5 SEC) 13.2 H INR (0.90 - 1.17) 1.26 H Hematology CBC w Diff MAN DIFF ORDERED WBC (4.8 - 10.8 /CUMM) 19.7 H RBC (4.70 - 6.10 /CUMM) 4.75 Hgb (14.0 - 18.0 G/DL) 15.4 Hct (42 - 52 %) 46.1 MCV (80.0 - 94.0 FL) 97.0 H MCH (27.0 - 31.0 PG) 32.5 H RDW (11.5 - 14.5 %) 13.6 Plt Count (130 - 400 /CUMM) 571 H MPV (7.4 - 10.4 FL) 7.1 L Gran % (42.2 - 75.2 %) 86.2 H Lymphocytes % (20.5 - 51.1 %) 5.4 L Monocytes % (1.7 - 9.3 %) 7.6 Eosinophils % (0 - 5 %) 0.5 Basophils % (0.0 - 2.0 %) 0.3 Absolute Granulocytes (1.4 - 6.5 /CUMM) 17.0 H Segmented Neutrophils (42.2 - 75.2 %) 63 Band Neutrophils (0.0 - 5.0 %) 18 H Absolute Lymphocytes (1.2 - 3.4 /CUMM) 1.1 L Lymphocytes (20.5 - 51.1 %) 11 L Monocytes (1.7 - 9.3 %) 7 Absolute Monocytes (0.10 - 0.60 /CUMM) 1.5 H Eosinophils (0 - 5.0 %) 1 Absolute Eosinophils (0.0 - 0.7 /CUMM) 0.1 Absolute Basophils (0.0 - 0.2 /CUMM) 0.1 Platelet Estimate (ADEQUATE) INCREASED Normocytic RBCs VERIFIED Normochromic RBCs VERIFIED PUBS MCHC (33.0 - 37.0 G/DL) 33.5 Toxicology Serum Alcohol (<10 MG/DL) < 10.0 Assessment/Plan Assessment/Plan This is a 57 year old male admitted with acute sigmoid diverticulitis with perisigmoid abscess PPD 2 s/p percutaneous drainage with preliminary culture's growing GNR, remains tender on exam Cont bowel rest, IVF Cont pain regimen - IV tylenol/morphine/toradol Cont IV unasyn until cx finalized Flush drainage catheter with 10 cc sterile saline bid GI ppx on board Pt refusing hsq, was encouraged to ambulate frequently and discussed risk of developing clots Encourage ambulation F/u labs Will d/w Core Measures Venous Thromboembolism VTE Risk Factors Age>40 No Mechanical VTE Prophylaxis d/t N/A MechProphylax Ordered No VTE Pharm Prophylaxis d/t NA PharmProphylax ordered
[2017-11-15 09:23] LABS: ABSOLUTE BASOPHIL COUNT 0 /CUMM (0.0-0.2); ABSOLUTE EOSINOPHIL COUNT 0.4 /CUMM (0.0-0.7); ABSOLUTE GRANULOCYTE CT 8.5 /CUMM (1.4-6.5); ABSOLUTE LYMPH COUNT 1.6 /CUMM (1.2-3.4); ABSOLUTE MONOCYTE COUNT 1.3 /CUMM (0.10-0.60); BASOPHIL % 0.2 % (0.0-2.0); GRANULOCYTE % 72.2 % (42.2-75.2); MEAN CORPUSCULAR HGB 32.6 PG (27.0-31.0); MEAN CORPUSCULAR HGB CONC 33.5 G/DL (33.0-37.0); MEAN CORPUSCULAR VOLUME 97.2 FL (80.0-94.0); RBC DISTRIBUTION WIDTH 13.7 % (11.5-14.5); RED BLOOD CELL CT 4.33 /CUMM (4.70-6.10); WHITE BLOOD CELL COUNT 11.8 /CUMM (4.8-10.8)
[2017-11-15 10:16] LABS: HEMATOCRIT 42.1 % (42-52)
[2017-11-15 10:17] LABS: PLATELET COUNT 621 /CUMM (130-400)
--- NOTE | 2017-11-15 14:32 | Patient Discharge Instructions ---
Discharge Instructions General Discharge Information You were seen/treated for: Contained perforation of diverticulitis with abscess You had these procedures: Interventional radiology drainage and tube placement Watch for these problems: Worsening abdominal pain, nausea, vomiting, fever Other wound care: Band-Aid as needed Special Instructions: Take antibiotics as directed for infection, call to make an appointment for follow-up in one week Diet Continue normal diet: No Recommended Diet: Low Residue Activity Full Activity/No Limits: No Activity Self Limited: Yes Acute Coronary Syndrome Inclusion Criteria At DC or during hospital stay patient has or had the following: ACS DIAGNOSIS No Discharge Core Measures Meds if any: Prescribed or Continued at Discharge Meds if any: NOT Prescribed or Continued at Discharge Congestive Heart Failure Inclusion Criteria At DC or during hospital stay patient has or had the following: CHF DIAGNOSIS No Discharge Core Measures Meds if any: Prescribed or Continued at Discharge Meds if any: NOT Prescribed or Continued at Discharge Cerebrovascular accident Inclusion Criteria At DC or during hospital stay patient has or had the following: CVA/TIA Diagnosis No Discharge Core Measures Meds if any: Prescribed or Continued at Discharge Meds if any: NOT Prescribed or Continued at Discharge Venous thromboembolism Inclusion Criteria VTE Diagnosis No VTE Type NONE VTE Confirmed by (Test) NONE Discharge Core Measures - Per Current guidelines, there needs to be overlap - treatment for the first 5 days of Warfarin therapy. - If discharged on Warfarin prior to 5 days of - overlap therapy, the patient will need to be - assessed for post discharge needs including - *Post discharge parental anticoagulation - *Warfarin and/or parental anticoagulation education - *Follow up date to check INR post discharge At least 5 days overlap therapy as Inpatient No Meds if any: Prescribed or Continued at Discharge Note: Overlap Therapy is Warfarin and Anticoagulant Meds if any: NOT Prescribed or Continued at Discharge
[2017-11-16 02:55] VITALS: BP 130/82
[2017-11-16 06:19] VITALS: BP 142/84
[2017-11-16 08:05] LABS: ABSOLUTE BASOPHIL COUNT 0 /CUMM (0.0-0.2); ABSOLUTE EOSINOPHIL COUNT 0.5 /CUMM (0.0-0.7); ABSOLUTE GRANULOCYTE CT 8.6 /CUMM (1.4-6.5); ABSOLUTE LYMPH COUNT 1.8 /CUMM (1.2-3.4); ABSOLUTE MONOCYTE COUNT 1.1 /CUMM (0.10-0.60); BASOPHIL % 0.4 % (0.0-2.0); EOSINOPHIL % 4.1 % (0-5); GRANULOCYTE % 71.2 % (42.2-75.2); HEMATOCRIT 39.3 % (42-52); MEAN CORPUSCULAR HGB 32.7 PG (27.0-31.0); MEAN CORPUSCULAR HGB CONC 33.9 G/DL (33.0-37.0); MEAN CORPUSCULAR VOLUME 96.4 FL (80.0-94.0); MEAN PLATELET VOLUME 6.8 FL (7.4-10.4); PLATELET COUNT 667 /CUMM (130-400); RBC DISTRIBUTION WIDTH 14.1 % (11.5-14.5); RED BLOOD CELL CT 4.08 /CUMM (4.70-6.10)
--- NOTE | 2017-11-16 08:21 | PN- General Surgery ---
See Addendum Subjective Subjective: No overnight events. Reported that he had some discomfort while switching rooms. Last dose of morphine received at 6:30 AM. Pain is adequately controlled with IV morphine. No nausea vomiting. No flatus/bowel movement. Tolerating minimal amount of clears liquid diet. Objective Vital Signs and I&Os Vital Signs Date Time Temp Pulse Resp B/P B/P Pulse O2 O2 Flow FiO2 Mean Ox Delivery Rate 11/16 0619 98.5 64 20 142/84 94 11/16 0255 98.6 96 20 130/82 94 Room Air 11/15 2226 98.6 64 18 138/100 95 Room Air 11/15 1800 99.2 74 19 138/98 95 Room Air 11/15 1406 98.9 65 18 128/98 96 11/15 1000 99.7 65 18 142/86 95 Room Air Intake & Output 11/16 1600 11/16 0800 11/16 0000 11/15 1600 11/15 0800 11/15 0000 Intake Total 8689 926 1356 1100 Output Total 30 20 35 10 Balance 2231 401 0786 1065 -10 Intake, IV 0777 227 7581 1100 Intake, Oral 240 480 200 Number 0 0 Bowel Movements Output, 30 20 35 10 Drainage Patient 180 lb Weight Physical Exam: Appears in no distress, alert oriented 3 resting in bed comfortably. Sling lung sounds are clear to auscultation bilaterally. No additional sounds appreciated. Heart rate is regular rate and rhythm. With this and S2 appreciated. Abdomen soft, minimally distended, tender in the mid abdomen as well as in the left lower quadrant. The IR drain site is clean dry and intact. IR drain is draining feculent output. No rebound guarding. Current Medications: Current Medications Sig/Julianna Start time Last Medication Dose Route Stop Time Status Admin Acetaminophen 1,000 MG .STK-MED ONE 11/15 1755 DC IV 11/15 175 Acetaminophen 1,000 MG Q6P PRN 11/13 1530 AC 11/15 N/A 1 UNIT IV 1757 Ampicillin Sodium/ 3,000 MG Q6H 11/13 2200 AC 11/16 Sulbactam Sodium IV 0405 Sodium Chloride 100 ML Heparin Sodium 5,000 UNIT Q8 11/13 2200 AC (Porcine) SC Ketorolac 30 MG Q6P PRN 11/14 0800 AC Tromethamine IV Lorazepam 0 Q1P PRN 11/13 1745 AC IV Melatonin 5 MG AT BEDTIME 11/14 0015 AC 11/15 PO 2229 Morphine Sulfate 4 MG Q4-6 PRN PRN 11/13 1530 AC 11/16 IV 0638 Morphine Sulfate 6 MG Q4-6 PRN PRN 11/13 1530 AC IV Morphine Sulfate 2 MG Q4P PRN 11/13 1530 AC IV Ondansetron HCl 4 MG Q6P PRN 11/13 1530 AC IV Pantoprazole Sodium 40 MG DAILY 11/14 1000 AC 11/15 IV 0900 Potassium Chloride 20 MEQ Q8H 11/13 1715 11/16 Dextrose/Sodium 1,000 ML IV 0133 Chloride Results Last 48 Hours of Labs: Laboratory Tests 11/16 11/15 0714 0745 Chemistry Sodium (137 - 145 mmol/L) 142 Potassium (3.5 - 5.1 mmol/L) 3.7 Chloride (98 - 107 mmol/L) 104 Carbon Dioxide (22 - 30 mmol/L) 26 Anion Gap (5 - 16) 12 BUN (9 - 20 mg/dL) 10 Creatinine (0.7 - 1.2 mg/dL) 0.7 Estimated GFR (>60 ml/min) > 60 BUN/Creatinine Ratio (7 - 25 %) 14.3 Hematology CBC w Diff Pending NO MAN DIFF REQ WBC (4.8 - 10.8 /CUMM) Pending 11.8 H RBC (4.70 - 6.10 /CUMM) Pending 4.33 L Hgb (14.0 - 18.0 G/DL) Pending 14.1 Hct (42 - 52 %) Pending 42.1 MCV (80.0 - 94.0 FL) Pending 97.2 H MCH (27.0 - 31.0 PG) Pending 32.6 H RDW (11.5 - 14.5 %) Pending 13.7 Plt Count (130 - 400 /CUMM) Pending 621 H MPV (7.4 - 10.4 FL) Pending 7.0 L Gran % (42.2 - 75.2 %) 72.2 Lymphocytes % (20.5 - 51.1 %) 13.8 L Monocytes % (1.7 - 9.3 %) 10.8 H Eosinophils % (0 - 5 %) 3.0 Basophils % (0.0 - 2.0 %) 0.2 Absolute Granulocytes (1.4 - 6.5 /CUMM) 8.5 H Absolute Lymphocytes (1.2 - 3.4 /CUMM) 1.6 Absolute Monocytes (0.10 - 0.60 /CUMM) 1.3 H Absolute Eosinophils (0.0 - 0.7 /CUMM) 0.4 Absolute Basophils (0.0 - 0.2 /CUMM) 0 PUBS MCHC (33.0 - 37.0 G/DL) Pending 33.5 Assessment/Plan Assessment/Plan 55-year-old male admitted with perforated sigmoid diverticulitis with abscess status post IR drain placement,, being currently managed conservatively with IV antibiotics and IR drain. Plan is #1 continue clear liquid diet and antibiotics(unasyn') and serial abdominal exam. 2. We'll transition from D5 normal saline to maintenance fluids. 3. Strict I's and O's. 4. We'll monitor CBCs/lytes and repelete lytes. 5. If continues to improve clinically will anticipate to advance the diet to low fiber dietlatter in the day. 6. Continue to flush the IR drain. Problem List: 1. Sigmoid diverticulitis 2. Abscess of sigmoid colon due to diverticulitis Core Measures Venous Thromboembolism VTE Risk Factors Age>40 No Mechanical VTE Prophylaxis d/t N/A MechProphylax Ordered No VTE Pharm Prophylaxis d/t NA PharmProphylax ordered
[2017-11-16 10:00] VITALS: BP 142/88
[2017-11-16 14:30] VITALS: BP 128/84
[2017-11-16 19:53] VITALS: BP 132/92
[2017-11-16 22:51] VITALS: BP 124/80
[2017-11-17 02:12] VITALS: BP 130/80
[2017-11-17 06:13] VITALS: BP 134/82
[2017-11-17 08:29] LABS: ABSOLUTE BASOPHIL COUNT 0 /CUMM (0.0-0.2); ABSOLUTE EOSINOPHIL COUNT 0.6 /CUMM (0.0-0.7); ABSOLUTE GRANULOCYTE CT 6.5 /CUMM (1.4-6.5); ABSOLUTE MONOCYTE COUNT 0.9 /CUMM (0.10-0.60); BASOPHIL % 0.3 % (0.0-2.0); EOSINOPHIL % 5.7 % (0-5); GRANULOCYTE % 64.7 % (42.2-75.2); HEMATOCRIT 38.5 % (42-52); MEAN CORPUSCULAR HGB 32.9 PG (27.0-31.0); MEAN CORPUSCULAR HGB CONC 34.1 G/DL (33.0-37.0); MEAN CORPUSCULAR VOLUME 96.4 FL (80.0-94.0); MEAN PLATELET VOLUME 6.7 FL (7.4-10.4); PLATELET COUNT 676 /CUMM (130-400); RBC DISTRIBUTION WIDTH 14.3 % (11.5-14.5)
--- NOTE | 2017-11-17 10:05 | PN- General Surgery ---
See Addendum Subjective Subjective: "this is the best I've felt in 2 weeks", vivek clears- no n/v. still bloated but much improved. +flatus. no bm. +voids. +oob no cp/sob Objective Vital Signs and I&Os Vital Signs Date Time Temp Pulse Resp B/P B/P Pulse O2 O2 Flow FiO2 Mean Ox Delivery Rate 11/17 0613 98.3 60 20 134/82 94 11/17 0212 98.4 60 20 130/80 92 11/16 2251 99.1 66 20 124/80 96 Room Air 11/16 1953 97.9 73 18 132/92 95 Room Air 11/16 1430 98.5 62 20 128/84 94 Room Air 11/16 1000 98.9 63 18 142/88 94 Room Air Intake & Output 11/17 1600 11/17 0800 11/17 0000 11/16 1600 11/16 0800 11/16 0000 Intake Total 417 789 5713 1340 780 Output Total 312 30 30 Balance 755 436 2642 1310 780 Intake, IV 650 434 042 9518 300 Intake, Oral 480 600 240 480 Number 0 Bowel Movements Output, 12 30 30 Drainage Output, Urine 300 Physical Exam: gen- nad card-s1s2 rrr pulm- ctab abd- softly dist, +bs, drain in place- dressing cdi, bag just emptied, nt ext- calves soft nt bl Results Last 48 Hours of Labs: Laboratory Tests 11/17 11/17 0943 0705 Chemistry Sodium Pending Potassium Pending Chloride Pending Carbon Dioxide Pending Anion Gap Pending BUN Pending Creatinine Pending BUN/Creatinine Ratio Pending Hematology CBC w Diff NO MAN DIFF REQ WBC (4.8 - 10.8 /CUMM) 10.0 RBC (4.70 - 6.10 /CUMM) 4.00 L Hgb (14.0 - 18.0 G/DL) 13.1 L Hct (42 - 52 %) 38.5 L MCV (80.0 - 94.0 FL) 96.4 H MCH (27.0 - 31.0 PG) 32.9 H RDW (11.5 - 14.5 %) 14.3 Plt Count (130 - 400 /CUMM) 676 H MPV (7.4 - 10.4 FL) 6.7 L Gran % (42.2 - 75.2 %) 64.7 Lymphocytes % (20.5 - 51.1 %) 19.9 L Monocytes % (1.7 - 9.3 %) 9.4 H Eosinophils % (0 - 5 %) 5.7 H Basophils % (0.0 - 2.0 %) 0.3 Absolute Granulocytes (1.4 - 6.5 /CUMM) 6.5 Absolute Lymphocytes (1.2 - 3.4 /CUMM) 2.0 Absolute Monocytes (0.10 - 0.60 /CUMM) 0.9 H Absolute Eosinophils (0.0 - 0.7 /CUMM) 0.6 Absolute Basophils (0.0 - 0.2 /CUMM) 0 PUBS MCHC (33.0 - 37.0 G/DL) 34.1 11/16 0714 Hematology CBC w Diff NO MAN DIFF REQ WBC (4.8 - 10.8 /CUMM) 12.0 H RBC (4.70 - 6.10 /CUMM) 4.08 L Hgb (14.0 - 18.0 G/DL) 13.4 L Hct (42 - 52 %) 39.3 L MCV (80.0 - 94.0 FL) 96.4 H MCH (27.0 - 31.0 PG) 32.7 H RDW (11.5 - 14.5 %) 14.1 Plt Count (130 - 400 /CUMM) 667 H MPV (7.4 - 10.4 FL) 6.8 L Gran % (42.2 - 75.2 %) 71.2 Lymphocytes % (20.5 - 51.1 %) 14.8 L Monocytes % (1.7 - 9.3 %) 9.5 H Eosinophils % (0 - 5 %) 4.1 Basophils % (0.0 - 2.0 %) 0.4 Absolute Granulocytes (1.4 - 6.5 /CUMM) 8.6 H Absolute Lymphocytes (1.2 - 3.4 /CUMM) 1.8 Absolute Monocytes (0.10 - 0.60 /CUMM) 1.1 H Absolute Eosinophils (0.0 - 0.7 /CUMM) 0.5 Absolute Basophils (0.0 - 0.2 /CUMM) 0 PUBS MCHC (33.0 - 37.0 G/DL) 33.9 Assessment/Plan Assessment/Plan A- 57M HD4 with sigmoid diverticulitis with abscess, sp IR drain 11/13, clinically improved with normalized white count. P- LR diet HL OOB, ambulate, hep sq cont abx cont drain, daily flushes ?VNA dw attending Core Measures Venous Thromboembolism VTE Risk Factors Age>40 No Mechanical VTE Prophylaxis d/t N/A MechProphylax Ordered No VTE Pharm Prophylaxis d/t NA PharmProphylax ordered
[2017-11-17 14:23] VITALS: BP 130/90
[2017-11-17 23:27] VITALS: BP 124/80
[2017-11-18 06:15] VITALS: BP 136/78
--- NOTE | 2017-11-18 08:05 | PN- General Surgery ---
See Addendum Subjective Subjective: HD#5 S/P IR DRAIANGE OF DIVERTICULAR ABSCESS SITTING UP IN BED THIS AM IN [employer] TOLERATING REGULAR DIET DENIES CP, SOB, NO ABDOMINAL PAIN THIS AM WBC YESTERDAY 10 +BM YESTERDAY Objective Vital Signs and I&Os Vital Signs Date Time Temp Pulse Resp B/P B/P Pulse O2 O2 Flow FiO2 Mean Ox Delivery Rate 11/18 0615 98.5 61 20 136/78 93 11/17 2327 98.3 60 20 124/80 95 Room Air 11/17 1423 98.2 61 20 130/90 94 Room Air Intake & Output 11/18 1600 11/18 0800 11/18 0000 11/17 1600 11/17 0800 11/17 0000 Intake Total 937 558 1080 650 580 Output Total 15 1 312 30 Balance 272 824 9912 338 550 Intake, IV 120 120 375 650 100 Intake, Oral 120 120 720 480 Number 0 Bowel Movements Output, 15 12 30 Drainage Output, Stool 1 Output, Urine 300 Physical Exam: CV: RRR LUNGS: CLEAR ABD: SOFT +BS SMALL AMOUNT OF DRAINAGE IN BAG EXT: WARM, NO CALF TENDERNESS BILAT Assessment/Plan Assessment/Plan STABLE HAS BEEN SELF FLUSHING DRAINAGE TUBE WITHOUT DIFFICULTY TOLERATING REGULAR DIET +BM PLAN OOB AMBULATE WILL D/W ATTENDING POSSIBLE D/C LATER TODAY AND ABX COURSE WOULD LIKE VNS FOR HOME WITH DRAIN ASSISTANCE Core Measures Venous Thromboembolism VTE Risk Factors Age>40 No Mechanical VTE Prophylaxis d/t N/A MechProphylax Ordered No VTE Pharm Prophylaxis d/t NA PharmProphylax ordered
--- NOTE | 2017-11-18 13:27 | Surgical Discharge Summary ---
Visit Information Visit Dates Admission Date: 11/13/17 Discharge Date: 11/18/17 History of Present Illness Chief Complaint: abdominal pain. 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 Psychosocial History What is Your Primary Language? [place] ETOH Use: 4-6 beers/day Review of Systems: see preop hp Hospital Course Course Attending Physician: Frandy Snow MD Primary Care Physician: Ryan Gamboa MD Hospital Course: admitted for diverticluar abscess for bowel rest and IV antibiotics. Interventional radiology percutaneously drained abscess. His pain and leukocytosis resolved. He was started on a diet and dicharged home. Allergies: Coded Allergies: NO KNOWN ALLERGIES (11/20/13) Significant Procedures: Percutaneous drainage sigmoid colon abscess. Disposition Summary Disposition Principal Diagnosis: Diverticulitis with abscess Additional Diagnosis: none Discharge Disposition: home health services Discharge Instructions General Discharge Information Code Status: Full Code Patient's Diet: regular low fiber Patient's Activity: ad cordell Follow-Up Instructions/Appts: one week to arrange CT. Medications at Discharge Discharge Medications: Start taking the following new medications: Oxycodone HCl/Acetaminophen (Percocet 5-325 MG Tablet) 5 MG-325 MG TABLET 1-2 Tablet ORAL EVERY 4 HOURS NEEDED as needed for PAIN SCALE 4-6 ( MODERATE) Qty = 36 No Refills Comments: Last Taken: 11/18/17 Time: 1127 Amoxicillin/Potassium Clav (Augmentin 875-125 Tablet) 875 MG-125 MG TABLET 1 Tablet ORAL TWICE DAILY Qty = 28 No Refills
[2017-11-18] MEDS ORDERED: AUGMENTIN 875-1 EACH PO (13:29)
[2017-11-18] MEDS ORDERED: PERCOCET 5-3251 EACH PO (13:29)
== END 2017-11-18 15:30 | disposition home health service (06) | DRG 392 ==
LOC: ERH 11:21 → ERHI 15:21 → 2NB 15:21 → ENRESERV 16:50 → 2NB 19:17 → ENPENDDIS 11-18 13:40 → 2NB 11-18 15:30
PROVIDERS: Emergency Medicine; Nurse Practitioner; Physician Assistant; Physician Assistant Surgical
PROC: 0J9830Z Drainage of Abdomen Subcutaneous Tissue and Fascia with Drainage Device, Percutaneous Approach (ICD-10-PCS; principal; 2017-11-13)
DX: K57.20 Diverticulitis of large intestine with perforation and abscess without bleeding (principal); B95.4 Other streptococcus as the cause of diseases classified elsewhere; B96.20 Unspecified Escherichia coli [E. coli] as the cause of diseases classified elsewhere; F17.210 Nicotine dependence, cigarettes, uncomplicated
CPT/HCPCS: 2NBSP; 2NSBP; 87075; 36415; 74177; 75989; 82436; 87040; 87071; 93005; 93010; 96361; 96374; 96375; G0480; J0131; J1644; J1885; J2250; J2310; J2405; J7042; S5012